=== PATIENT | female | born 1960 | race Caucasian/White ===

== ENCOUNTER 2017-09-21 14:13 | Emergency (ER) | payer OTHER ==
[~2017-09-21] VITALS: Ht 160 cm; Wt 77.1 kg
[~2017-09-21 14:13] MED LIST: Advil200 M1 PO; Aspirin EC81 MG; B Complex1 EAC2 PO; CYCL10 PO; Fish Oil500 MG PO; PENVK500 PO; Prinivil10 MG PO; TRIA80TC TOP; VITAMIN D-32000 UNIT PO; VITS
[2017-09-21] MEDS ORDERED: NAPR500 PO (15:16)
[2017-09-21] MEDS ORDERED: LISI20 PO (15:16)
[2017-09-21 15:20] LABS: BASOPHILS ABSOLUTE AUTO 0.02 K/mm3 (0.00-0.23); BASOPHILS PERCENT AUTO 0 % (0-2); EOSINOPHILS ABSOLUTE AUTO 0.09 K/mm3 (0.00-0.68); EOSINOPHILS PERCENT AUTO 1 % (0-6); Hemoglobin 13.3 g/dL (11.5-16.0); IMMATURE GRAN ABSOLUTE AUTO 0.05 K/mm3 (0.00-0.10); IMMATURE GRAN PERCENT AUTO 1 % (0-1); LYMPHOCYTES ABSOLUTE AUTO 1.98 K/mm3 (0.84-5.20); LYMPHOCYTES PERCENT AUTO 28 % (21-46); MONOCYTES ABSOLUTE AUTO 0.99 K/mm3 (0.16-1.47); MONOCYTES PERCENT AUTO 14 % (4-13); Mean Corpuscular HGB 33.9 pg (26.0-34.0); Mean Corpuscular HGB Conc 34.1 g/dL (31.5-36.5); Mean Corpuscular Volume 100 fL (80-100); Mean Platelet Volume 9.9 fL (9.1-12.4); NEUTROPHILS ABSOLUTE AUTO 4.02 K/mm3 (1.96-9.15); NEUTROPHILS PERCENT AUTO 56 % (41-73); Platelet Count 260 K/mm3 (150-400); RDW Coefficient Variation 14.7 % (11.7-14.2); RDW Standard Deviation 53.7 fL (35.1-46.3); Red Blood Cell Count 3.92 M/mm3 (3.80-5.20); White Blood Cell Count 7.15 K/mm3 (4.00-11.30)
[2017-09-21 15:40] LABS: Magnesium, Blood 2.1 mg/dL (1.6-2.4); Troponin I <0.015 ng/mL (0.000-0.040)
[2017-09-21 15:48] LABS: Alanine Aminotransfer (ALT/SGP 30 U/L (12-78); Albumin, Blood 3.5 g/dL (3.4-5.0); Albumin/Globulin Ratio 0.8 (0.8-1.8); Alk Phos 59 U/L (50-136); Anion Gap 9 mmol/L (6-16); Aspartate Aminotrans (AST/SGOT 19 U/L (12-37); Bilirubin, Total 0.3 mg/dL (0.1-1.0); Blood Urea Nitrogen 10 mg/dL (8-24); Bun/Creatinine Ratio 16.8 (12.0-20.0); CO2, Blood 27 mmol/L (21-32); Calcium, Blood 9.3 mg/dL (8.5-10.1); Chloride, Blood 105 mmol/L (98-108); Creatinine, Blood 0.59 mg/dL (0.40-1.00); Globulin, Blood 4.3 g/dL (2.2-4.0); Glomerular Filtration Rate >60 (60-); Glucose, Blood 104 mg/dL (70-99); Potassium, Blood 3.9 mmol/L (3.5-5.5); Sodium, Blood 141 mmol/L (136-145); Total Protein, Blood 7.8 g/dL (6.4-8.2)
[2017-10-24] MEDS ORDERED: ERGO400 PO (11:15)
[2017-10-24] MEDS ORDERED: EYE DROPS FOR GLAUCO (11:16)
[2017-11-02] MEDS ORDERED: CHLORACON PO (07:41)
[2017-11-03] MEDS ORDERED: ASPI325EC PO (08:51)
[2017-11-03] MEDS ORDERED: Percocet 5-3251 EACH PO (08:51)
[2017-11-03] MEDS ORDERED: PROM25 PO (08:52)
[2018-01-31] MEDS ORDERED: FURO40 PO (12:20)
[2018-01-31] MEDS ORDERED: CHOL10002 PO (12:21)
[2018-01-31] MEDS ORDERED: [UNRECOGNIZED DRUG - OTHER] BOTHEYES (12:26)
== END 2017-09-21 16:43 | disposition home or self-care (01) ==
LOC: ER 14:13
PROVIDERS: Physician Assistant
DX: R07.9 Chest pain, unspecified (principal); Z88.5 Allergy status to narcotic agent; Z88.8 Allergy status to other drugs, medicaments and biological substances; Z79.899 Other long term (current) drug therapy; I10 Essential (primary) hypertension; Z87.891 Personal history of nicotine dependence
CPT/HCPCS: 36415; 71046; 80053; 83735; 84443; 84484; 85025; 93005; 93010; 96374; 99284; J2060

== ENCOUNTER 2018-02-01 09:21 | Day surgery (SDC) | payer OTHER ==
[~2018-02-01] VITALS: Ht 157.5 cm; Wt 79.4 kg
[~2018-02-01 09:21] MED LIST changes: +ASPI325EC PO; +CHLORACON PO; +CHOL10002 PO; +ERGO400 PO; +EYE DROPS FOR GLAUCO; +FURO40 PO; +LISI20 PO; +NAPR500 PO; +PROM25 PO; +Percocet 5-3251 EACH PO; +[UNRECOGNIZED DRUG - OTHER] BOTHEYES
== END 2018-02-01 11:10 | disposition home or self-care (01) ==
LOC: ORSCMMR 09:21 → ORD 10:30 → ORSCMMR 10:30
PROVIDERS: Internal Medicine Gastroenterology
PROC: 0DBN8ZX Excision of Sigmoid Colon, Via Natural or Artificial Opening Endoscopic, Diagnostic (ICD-10-PCS; principal; 2018-02-01 10:30)
PROC: 0DBK8ZX Excision of Ascending Colon, Via Natural or Artificial Opening Endoscopic, Diagnostic (ICD-10-PCS; principal; 2018-02-01 10:30)
DX: K92.1 Melena (principal); D12.2 Benign neoplasm of ascending colon; K63.5 Polyp of colon; K64.8 Other hemorrhoids; I10 Essential (primary) hypertension; Z86.010 Personal history of colon polyps; Z87.891 Personal history of nicotine dependence; Z79.899 Other long term (current) drug therapy
CPT/HCPCS: 88305; J7030

== ENCOUNTER 2023-11-18 17:06 | Emergency (ER) | payer OTHER ==
[~2023-11-18] VITALS: Ht 157.5 cm; Wt 81.7 kg
[2023-11-18 20:58] VITALS: BP 121/86
[2023-11-18] MEDS ORDERED: HYDROcodone 5-APAP 325 TAB PO ONE (22:00)
[2023-11-18] MEDS ORDERED: Cyclobenzaprine HCl 10 MG Tab PO ONE (22:00)
[2023-11-18] MEDS ORDERED: DOCU100 PO (22:09)
[2023-11-18] MEDS ORDERED: CYCL10 PO (22:09)
[2023-11-18] MEDS ORDERED: HYDR1TAB94 PO (22:09)
== END 2023-11-18 22:21 | disposition home or self-care (01) ==
LOC: ER 17:06
DX: S46.911A Strain of unspecified muscle, fascia and tendon at shoulder and upper arm level, right arm, initial encounter (principal); S43.421A Sprain of right rotator cuff capsule, initial encounter; X50.0XXA Overexertion from strenuous movement or load, initial encounter; Z88.1 Allergy status to other antibiotic agents; Z88.5 Allergy status to narcotic agent; Z79.899 Other long term (current) drug therapy; I10 Essential (primary) hypertension; Z87.891 Personal history of nicotine dependence
CPT/HCPCS: 73030; 99283-25; A9270